=== PATIENT | female | born 1960 | race Caucasian/White ===

== ENCOUNTER 2023-05-02 15:49 | Outpatient (REF) | payer OTHER, SELFPAY ==
--- NOTE | ~2023-05-02 | MR_ITS ---
EXAMINATION: MR BRAIN WITHOUT CONTRAST CLINICAL INFORMATION: Hemiparesis. Patient has a known arteriovenous malformation per Dr. Camara. COMPARISON: None available. TECHNIQUE: Multiplanar, multisequence imaging of the brain was performed without contrast. FINDINGS: There is T2 hyperintense signal abnormality and small curvilinear low signal foci in the parafalcine medial aspect of the high left frontal lobe near the vertex with small areas of susceptibility artifact as well. This 1.8 x 1 x 1.5 cm heterogeneous area of signal abnormality involves the cortical land matter and subcortical white matter deep to the left superior frontal sulcus. The patient is known to have a small arteriovenous malformation in this region. No diffusion abnormalities are identified to suggest an acute or subacute infarct. The ventricles are normal in size. No mass effect or midline shift is seen. Nonspecific minimal scattered white matter signal changes are visible. Mild white matter signal changes are also visible in the central shweta, which may be due to chronic microangiopathy. No extra-axial fluid collections are seen. The cerebellum is normal. The craniovertebral junction, marrow signal, and remaining midline structures are normal. The major intracranial flow voids at the level of the rosebud of Mcdaniel are preserved. The dural venous sinus flow voids are maintained. The mastoid air cells and paranasal sinuses are fairly well aerated. Mild osseous thickening of the left parietal calvarium at the vertex may be due to an osteoma. MR/MR head/brain wo con IMPRESSION: Small arteriovenous malformation in the superomedial left frontal lobe near the vertex with mild surrounding chronic gliosis. Otherwise, no acute intracranial process. Imaging findings discussed with Dr. Camara at 10:40 AM on 05/07/2023.
== END 2023-05-02 15:50 | disposition home or self-care (01) ==
LOC: HO.MRI 15:49
PROVIDERS: Visit Provider Psychiatry & Neurology Neurology
DX: G81.90 Hemiplegia, unspecified affecting unspecified side (principal); G31.09 Other frontotemporal neurocognitive disorder; Q28.2 Arteriovenous malformation of cerebral vessels
CPT/HCPCS: 70551

== ENCOUNTER 2024-09-14 10:29 | Outpatient (AMB) | payer OTHER, SELFPAY ==
--- NOTE | 2024-09-14 10:31 | A.OFFVIS_ITS ---
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 Since then, this weakness has extended to involve her whole right side and also affected her ability to speak. She has consulted many neurologists here and in [place]. Her nurse and twine reeling machine operator were here with number of question asking if done I was suffering from CIDP or Lyme disease. [facility] Medical History (Updated 09/14/24 @ 10:57 by Josselyn Camara MD) Other frontotemporal neurocognitive disorder RLS (restless legs syndrome) Familial spastic paraparesis Hemiparesis AVM (arteriovenous malformation) Insomnia Anxiety disorder Parkinsonism Assessment & Plan Assessment & Plan (1) Hemiparesis: Comment: MRI brain WO at [facility] in Apr 2023: Left frontal AVM with adjascent atrophy Brain MRI WO at [facility] in Jan 2022: Left frontal IMELDA area AVM with no significant encephalomalacia but left frontal cortical areas are atropied Brain MACKENZIE SPECT study in 2017: findings suspicious of PD (reported) CT brain WO at [facility] in 2014: left frontal parasagital multifocal hyperdense lesion, ?AVM MRI brain WWO at [facility] in 2014: left parasagital frontal mixed density lesion, ?AVM MRI C spine at [facility] in 2014 WO: mild spondylosis MRI C spine at [facility] in 2014: WWO: mild spondylosis MRI T spine at [facility] in 2014: mild spondylosis MRI LS spne at [facility] in 2014: L5/S1 mod to sev DJD Code(s): G81.90 - Hemiplegia, unspecified affecting unspecified side Category: Medical Qualifiers: Cerebrovascular disease type: other nontraumatic intracranial hemorrhage Hemiparesis etiology: late effect of cerebrovascular disease Hemiparesis laterality: right dominant side Qualified Code(s): I69.251 - Hemiplegia and hemiparesis following other nontraumatic intracranial hemorrhage affecting right dominant side (2) Anxiety disorder: Code(s): F41.9 - Anxiety disorder, unspecified Category: Medical Qualifiers: Anxiety disorder type: due to known physiological condition Qualified Code(s): F06.4 - Anxiety disorder due to known physiological condition (3) AVM (arteriovenous malformation) brain: Code(s): Q28.2 - Arteriovenous malformation of cerebral vessels Category: Medical (4) Dysarthria: Code(s): R47.1 - Dysarthria and anarthria Category: Medical (5) Other frontotemporal neurocognitive disorder: Code(s): G31.09 - Other frontotemporal neurocognitive disorder; F02.80 - Dementia in other diseases classified elsewhere, unspecified severity, without behavioral disturbance, psychotic disturbance, mood disturbance, and anxiety Category: Medical (6) Spasticity: Comment: Meds tried: cyclobenzaprine, baclofen, tizanidine Code(s): R25.2 - Cramp and spasm Category: Medical (7) RLS (restless legs syndrome): Comment: Meds tried: Pramipaxole Code(s): G25.81 - Restless legs syndrome Category: Medical (8) Degeneration of frontal lobe: Comment: Selective left frontal lobe atrophy, 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 Code(s): G31.9 - Degenerative disease of nervous system, unspecified Category: Medical Plan Impression: 64 yo woman with remote h/o left frontal AVM treated wtih embolization and probably also with radiation in [place] has right hemiparesis and aphasia with MRI brain revealed left frontal lobar atrophy with adjascent signs of AVM repair. Rec: a: Education of her caretakers who had numeours questions b: Sertaline 100mg daily c: Pramipaxole at bedtime for RLS d: She may have flu shot or shingle shot e: Refer to physiatry, Dr. Thapa for management of spasticity and related issues Orders: Referrals Physiatry Referral R25.2 - Cramp and spasm Medications: New sertraline 100 mg PO DAILY 90 tabs 1RF pramipexole 0.5 mg PO QPM 90 tabs 1RF Coding Level of Care Code Est Pt Level 5 (98430) Diagnoses Hemiparesis of right dominant side as late effect of other nontraumatic intracranial hemorrhage I69.251 Cerebrovascular disease type: other nontraumatic intracranial hemorrhage Hemiparesis etiology: late effect of cerebrovascular disease Hemiparesis laterality: right dominant side Anxiety disorder due to known physiological condition F06.4 Anxiety disorder type: due to known physiological condition AVM (arteriovenous malformation) brain Q28.2 Dysarthria R47.1 Other frontotemporal neurocognitive disorder G31.09; F02.80 Spasticity R25.2 RLS (restless legs syndrome) G25.81 Degeneration of frontal lobe G31.9
--- OUTSIDE RECORDS SUMMARY | 2024-09-14 11:32 | XMS_ITS | Clinical Summary ---
Author Organization [facility] Address [address] [address] Phone Care Team Providers Care Occupational Therapist Name Role Phone Jaret De La Cruz MD Primary Care Provider + Allergies No known active allergies Medications trospium (SANCTURA XR) 60 mg Cp24 Take 60 mg by mouth daily. Active sertraline (ZOLOFT) 50 MG tablet Take 50 mg by mouth daily. Active melatonin 10 mg Cap Take 10 mg by mouth nightly at bedtime. Active pramipexole (MIRAPEX) 0.5 MG tablet TAKE 1 TABLET BY MOUTH EVERY DAY 90 tablet 1 02/03/2021 Active Active Problems Problem Noted Date Diagnosed Date Gait difficulty 02/03/2020 Back pain 02/03/2020 Incontinence 12/09/2019 Assessment & Plan (12/09/2019 3:37 PM EDT): Recommend evaluation by urology Neuropathy 05/20/2019 Assessment & Plan (12/09/2019 3:36 PM EDT): She experienced side effects on gabapentin. It was restarted during rehab. 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 Not on mary e 06/22/2022 Are you concerned about learning? Not on file 06/22/2022 No 06/22/2022 No 06/22/2022 Digital Access Answer Date Recorded No 07/21/2022 No 07/21/2022 No 07/21/2022 Reliable internet access at home? Not on file 07/21/2022 Device with a working camera? Not on file Comments Unknown Sex and Gender Information Value Date Recorded Sex Assigned at Female 05/18/2019 2:44 PM EDT Legal Sex Female 2:12 PM EDT Gender Identity Female 05/18/2019 2:44 PM EDT Sexual Orientation Straight 05/18/2019 2: 44 PM EDT Last Filed Vital Signs Vital Sign Reading Time Taken Comments Blood Pressure 125/75 12/17/2018 10:50 AM EDT Pulse 81 12/17/2018 10:50 AM EDT Temperature 36.7 C (98 F) 12/17/2018 10:50 AM EDT Respiratory Rate 16 12/17/2018 10:50 AM EDT Oxygen Saturation 99% 12/17/2018 10:50 AM EDT Inhaled Oxygen Concentration - - Weight 75.3 kg (166 lb) 12/17/2018 10:50 AM EDT pt reported Height 177.8 cm (5' 10 ) 12/17/2018 10:50 AM EDT pt reported Body Mass Index 23.82 12/17/2018 10:50 AM EDT Plan of Treatment Upcoming Encounters Date Type Department Care Team (Late st Contact Info) Description 03/08/2025 4:00 PM EST Office Visit [facility] Neurology Neuromuscular [place] [address] [facility], [address] [place] [address] Jonah Crouch MD [address] [facility] [address] [place] [address] [email or web address] Health Maintenance Due Date Last Done Comments DEPRESSION SCREENING 1973 HEPATITIS C SCREENING 1979 HIV ONE-TIME SCREENING (18-6 5 YEARS) 1979 MAMMOGRAM 2001 COLONOSCOPY 2006 FIT TEST 2006 FOBT 2006 SIGMOIDOSCOPY 2006 VIRTUAL COLONOSCOPY 2006 PNEUMOCOCCAL VACCINES (50+ y ears) (1 of 1 - PCV) 2011 ZOSTER VACCINES (1 of 2) 2011 PAP SMEAR 06/25/2020 06/25/2017 COVID-19 VACCINE (2 - 2023-2 5 season) 2023 05/26/2020 Adult Td,Tdap Booster 07/24/2026 07/24/2016 COLOGUARD 08/13/2026 08/14/2023 COLORECTAL CANCER SCREENING 08/13/2026 LIPID PANEL 07/27/2029 07/27/2024 RSV VACCINE (1 - 1-dose 75+ series) 2036 SMOKING STATUS SCREENING (On ce After 26 Yrs) Completed 02/03/2020 HEPATITIS A VACCINES Aged Out No long er eligible based on patient's age to complete this topic HIB VACCINES Aged Out No longer eligi ble based on patient's age to complete this topic MENINGOCOCCAL VACCINES (ACWY) Aged Out No longer eligible based on patient's age to complete this topic MENINGOCOCCAL VACCINES (B) Aged Out N o longer eligible based on patient's age to complete this topic Medical Devices Not on file Insurance [facility] ONE CARE MEDICARE REPLACEMENT ONE CARE MEDICARE REPLACEMENT CARE MEDICARE [place] [place] [id number] ONE CARE MEDICARE REPLACEMENT CARE MEDICARE REPLACEMENT MEDICARE REPLACEMENT CARE MEDICARE REPLACEMENT [facility] ONE CARE MEDICARE REPLACEMENT [facility] ONE CARE MEDICARE REPLACEMENT Care Teams Occupational Therapist Relationship Specialty Start Date End Date Jaret De La Cruz MD [address] [place] [id number] PCP - General Internal Medicine 08/20/17 Additional Source Comments The information contained in this document represents components of the legal health record. It is not the complete legal health record.[facility]
--- OUTSIDE RECORDS SUMMARY | 2024-09-14 11:32 | XMS_ITS | Clinical Summary ---
Author Organization [facility] Address [address] [place] [address] Phone Care Team Providers Care Bull Gang Supervisor Name Role Phone Caitlin De La Cruz MD Primary Care Provider [phone] Allergies Active Allergy Reactions Criticality Noted Date Comments Iodinated Contrast Media 08/17/2020 Other Reaction(s): Hives/Urticaria Pt states she had hives from iv contrast . Medications acetaminophen (TYLENOL) 500 mg tablet Take 2 tablets (1,000 mg total) by mouth every 6 (six) hours if needed. Active melatonin 10 mg capsule Take 1 capsule (10 mg total) by mouth at bedtime. Active pramipexole (MIRAPEX) 0.5 mg tablet Take 1 tablet (0.5 mg total) by mouth 2 (two) times a day. Active diclofenac (VOLTAREN) 1 % topical gel Apply 4 g topically 2 (two) times a day if needed (knee pain). 90 g 2 5 09/16/19 25 Active sertraline (ZOLOFT) 100 mg tablet TAKE 1 TABLET BY MOUTH EVERY DAY 90 tablet 5 Active tirzepatide, weight loss, (Zepbound) 2.5 mg/0.5 mL injection Inject 0.5 mL (2.5 mg total) under the skin every 7 (seven) days. 2 mL 5 Active tirzepatide (Mounjaro) 2.5 mg/0.5 mL injectionIndica tions:BMI 31.0-31.9,adult Inject 0.5 mL (2.5 mg total) under the skin every 7 (seven) days. 2 mL 08/27/19 Active Problems Problem Noted Date Diagnosed Date Colon cancer screening 08/26/2024 Overview (08/26/2024): Cologuard positive 10/18 05/19 Colonoscopy. Adenoma---3 yrs BMI 31.0-31.9,adult 07/27/2024 Speech impairment 04/20/2024 Abnormal MRI, liver 06/19/2020 Overview (12/13/2023): Hepatic cysts on CT 08/15 Hip fracture (CMS/HCC V24, CMS/HCC V28) 09/09/19 20 Overview (12/13/2023): 08/14. Surgical fixation. Hardware removal 07/17 Corticobasal degeneration (CMS/HCC V24) 07/02/19 19 Overview (12/13/2023): She sees specialist in [place]. + parkinsons Incontinence 04/25/2016 AVM (arteriovenous malformation) 12/06/2015 Overview (12/13/2023): Treated embolization and Laser ablation Depression 12/06/2015 Right sided weakness 12/06/2015 Overview (12/13/2023): Right arm and right lower leg starting approx 2013. Multiple evaluations per pt. Local neurology x3. [facility]. Amador Dudley 03/13. ?parkinsons (drug induced). Dopamine imaging ordered Encounters Date Type Department Care Team Description 08/24/2024 Telephone Adult Medicine - [address] [place] [address] Cynthia Hernandez MA Fitting for DME 07/31/2024 10:30 AM EDT Office Visit Orthopedics - [address] [phone] Domingo Patel PA Primary osteoarthritis of left knee (Primary Dx) 07/28/2024 Telephone Adult Medicine - [address] [place] [address] Ifrah Ulloa PA Referral 07/27/2024 1:00 PM EDT Office Visit Adult Medicine - [address] [place] [address] Ifrah Ulloa PA Difficulty losing weight (Primary Dx); BMI 31.0-31.9,adult; Screening for lipid disorders from Last 3 Months Immunizations Name Administration Dates Next Due Pfizer SARS-CoV-2 COVID-19, mRNA, LNP-S, preservative free 03/20/2021,06/17/2020,05/26/2020 Tdap Tetanus diptheria acell ular pertussis (Boostrix; Adacel) 7yo and older 07/24/2016 Surgical History Surgery Date Site/Laterality Comments SECTION 1989 PROCEDURE: HISTORICAL OTHER SURGICAL HISTORY 1990 PROCEDURE: ---- OTHER ----; COMMENT: avm lASERED OTHER SURGICAL HISTORY 07/2019 Right PROCEDURE: NC OPTX ACTBLR FX INVG ANT&POST 2 COLUMNS FX W/INT TOTAL HIP ARTHROPLASTY Bilateral Medical History Medical History Date Comments Depression DX:Depression Anxiety DX:Anxiety Seizure (CMS/HCC V24, CMS/HCC V28) DX:Seizure (HCC) Neurodegenerative disorder (CMS/HCC V24) AVM (arteriovenous malformation) Family History Medical History Relation Name Comments Depression Brother 1 COPD Father Diabetes Father Hypertension Father Other: heart attack Father Prostate cancer Father Depression Mother Relation Name Status Comments Brother 1 Brother 2 Father Mother Social History Tobacco Use Types Packs/Day Years Used Date Smoking Tobacco: Never Smokeless Tobacco: Never Tobacco Cessation:Counseling Given: Not Answered Alcohol Use Standard Drinks/Week Comments Yes 0 (1 standard drink = 0.6 oz pur e alcohol) Housing Instability Answer Date Recorde d Are you worried that in the next 2 months you may not have stable housing? No 07/20/2024 Food Access & Nutrition Answer Date Rec orded Do you have access to a vari ety of food including fruits and vegetables? Yes 07/20/2024 Access to Healthcare Answer Date Record ed Within the last 3 months, ho w many times did you visit the emergency department for your medical care? 0 07/20/2024 Health Literacy Answer Date Recorded How often do you need to hav e someone help you when you read instructions, pamphlets, or other written material from your doctor or pharmacy? Never 07/20/2024 Caregiver: How often do you need to have someone help you when you read instructions, pamphlets, or other written material from your doctor or pharmacy? Not on file 07/20/2024 Financial Risk Answer Date Recorded How hard is it for you to pa y for the very basics like food, housing, medical care, and air conditioning / heating? Not very hard 07/20/2024 Transportation Answer Date Recorded Has the lack of transportati on kept you from meetings, work, or from getting things needed for daily living? No Has the lack of transportati on kept you from medical appointments or from getting medications? No 07/20/2024 Social Isolation Answer Date Recorded How often do you feel lonely or isolated from th ose around you? Rarely 07/20/2024 Food Risk Answer Date Recorded Within the past 12 months we worried whether our food would run out before we got money to buy more. Never true 07/20/2024 Within the past 12 months th e food we bought just didn't last and we didn't have money to get more. Never true 07/20/2024 Dependent Care Answer Date Recorded Do you need help finding or paying for care for your loved ones. For example, teacher early childhood development or elderly care for an older adult? No 07/20/2024 Education Answer Date Recorded Do you think completing more education or training, like finishing a GED, going to college, or learning a trade, would be helpful for you? No 07/20/2024 Employment and Income Answer Date Recor ded During the last four weeks, have you been actively looking for work? No 07/20/2024 Living Situation Answer Date Recorded What is your living situation? 0 07/20/2024 Interpersonal Safety Answer Date Record ed Physical Abuse 04/29/2024 Verbal Abuse 04/29/2024 Comments No Sex and Gender Information Value Date Recorded Sex Assigned at Female 04/29/2024 9:18 AM EST Legal Sex Female 12:09 PM EST Gender Identity Female 04/29/2024 9:18 AM EST Sexual Orientation Straight 04/29/2024 9: 18 AM EST Obstetrics History Last Filed Vital Signs Vital Sign Reading Time Taken Comments Blood Pressure 107/78 07/31/2024 10:35 AM EDT Pulse 74 07/31/2024 10:35 AM EDT Temperature 36.7 C (98 F) 07/27/2024 12:48 PM EDT Respiratory Rate 14 07/31/2024 10:35 AM EDT Oxygen Saturation 100% 04/29/2024 11:14 AM EST Inhaled Oxygen Concentration - - Weight 88.5 kg (195 lb) 07/31/2024 10:35 AM EDT Height 177.8 cm (5' 10 ) 07/27/2024 12:48 PM EDT Body Mass Index 27.98 07/27/2024 12:48 PM EDT Plan of Treatment Upcoming Encounters Date Type Department Care Team (Late st Contact Info) Description 11/02/2024 11:30 AM EDT Office Visit Orthopedics - [address] [place] [address] Domingo Patel PA [address] [place] [address] Health Maintenance Due Date Last Done Comments Breast Cancer Screening 1960 Pneumococcal Vaccine: 50+ Years (1 of 1 - PCV) 2011 Zoster Vaccines (1 of 2) 2011 Cervical Cancer Screening: Pap Smear 06/25/2020 06/25/2017, 06/25/2017, 06/25/2017 HIV Screening 01/29/2022 Medicare Annual Wellness Visit 01/29/2022 COVID-19 Vaccine (4 - 2023-2 5 season) 2023 03/20/2021, 06/17/2020, 05/26/2020 Influenza Vaccine (#1) 2024 Social Influencers of Health Screening 07/20/2025 07/20/2024 DTaP,Tdap,and Td Vaccines (2 - Td or Tdap) 07/24/2026 07/24/2016 Colorectal Cancer Screening: Colonoscopy 04/30/2027 04/29/2024 Cholesterol Screening (Lipid Panel) 07/27/2029 07/27/2024, 11/28/2023, 11/28/2023 Hepatitis C Screening Completed 03/27/2017 RSV Immunization Adult Patients Completed 11/29/2022 Colorectal Cancer Screening: FIT-DNA (Cologuard) Discontinued 08/14/2023, 08/14/2023 Depression Screening Completed 07/20/2024, 11/28/2023 HIB Vaccines Aged Out No longer eligi ble based on patient's age to complete this topic HPV Vaccines Aged Out No longer eligi ble based on patient's age to complete this topic Hepatitis A Vaccines Aged Out No long er eligible based on patient's age to complete this topic Hepatitis B Vaccines Aged Out No long er eligible based on patient's age to complete this topic IPV Vaccines Aged Out No longer eligi ble based on patient's age to complete this topic MMR Vaccines Aged Out No longer eligi ble based on patient's age to complete this topic Meningococcal ACWY Vaccine Aged Out N o longer eligible based on patient's age to complete this topic Meningococcal B Vaccine Aged Out No l onger eligible based on patient's age to complete this topic RSV Immunization Patients Under 20 months Aged Out No longer eligible based on patient's age to complete this topic Varicella Vaccines Aged Out No longer eligible based on patient's age to complete this topic Procedures Procedure Name Priority Date/Time Associated Diagnosis Comments NC ARTHROCENTESIS/ASPIRA TION/INJECTION MAJOR JOINT/BURSA W/O U/S GUIDANCE Routine 07/31/2024 10:30 AM EDT Primary osteoarthritis of left knee COMPREHENSIVE METABOLIC PANEL Routine 07/27/2024 1:27 PM EDT Screening for lipid disorders LIPID PANEL WITH REFLEX TO DIRECT LDL Routine 07/27/2024 1:27 PM EDT Screening for lipid disorders COLONOSCOPY Routine 04/29/2024 10:53 AM EST Positive colorectal cancer screening using Cologuard test DEPRESSION SCREENING Routine 11/28/2023 PAP SMEAR Routine 06/25/2017 HEPATITIS C SCREENING Routine 03/27/2017 from Last 3 Months or Most Recently Relevant to Health Maintenance Results * NC ARTHROCENTESIS/ASPIRATION/INJECTION MAJOR JOINT/BURSA W/O U/S GUIDANCE (07/31/2024 10:30 AM EDT) Domingo Murillo PA - 07/31/2024 10:30 AM EDT SHAUNA Sy 07/31/2024 10:54 AM L Inj/Asp: L knee Indications: pain Details: 22 G needle, anterolateral approach Medications: 4 mL lidocaine 1 %; 80 mg methylPREDNISolone acetate 80 mg/mL Outcome: tolerated well, no immediate complications Informed Consent: Site: Knee Laterality: Left Relevant images/test results available and reviewed: yes Health status cleared: Yes Procedure/treatment, purpose, treatment alternatives, risks/potential complications and benefits explained: yes Risk/complications/benefits details: Risks include but are not limited to: The treatment may not accomplish the desired results. Additionally bleeding, infection, damage to tendon, nerve, cartilage, muscle; thinning or lightening of the skin in the area of injection; flushing or redness of the face, elevated blood pressure or blood sugar, allergic reaction, rash, increased pain Benefits include relief of inflammation and pain Patient questions answered: yes Patient agrees, verbalizes understanding, and wants to proceed: yes Consent given by: Patient Informed consent discussion completed by Physician/ALICIA with patient: Verbal Pre-procedure timeout performed: yes us Domingo VILLATORO IN CLINIC/BEDSIDE ORDERABLES Fin al Result * (ABNORMAL) Lipid panel with reflex to direct LDL (07/27/2024 1:27 PM EDT) Cholesterol 253(H) 0 - 200 mg/dL LAB CHEMISTRY METHOD 07/27/2024 5:01 PM EDT [facility] Triglycerides 192(H) 0 - 150 mg/dL LAB CHEMISTRY METHOD 07/27/2024 5:01 PM EDT [facility] HDL 65 >=40 mg/dL LAB CHEMISTRY METHOD 07/27/2024 5:01 PM EDT [facility] LDL Calculated 150(H) 0 - 100 mg/dL LAB CHEMISTRY METHOD 07/27/2024 5:01 PM EDT [facility] VLDL Cholesterol Mark 38.4 mg/dL LAB CHEMISTRY METHOD 07/27/2024 5:01 PM T [facility] Non HDL Chol. (LDL+VLDL) 188(H) <145 mg/dL LAB CHEMISTRY METHOD 07/27/2024 5:01 PM [facility] Chol/HDL Ratio 3.9 0.0 - 4.4 LAB CHEMISTRY METHOD 07/27/2024 5:01 PM [facility] Blood Venous blood specimen / Unknown Venipuncture / Unknown 07/27/2024 1:27 PM EDT 07/27/2024 1:27 PM EDT us Ifrah VILLATORO LAB BLOOD ORDERABLES Final Resul t [facility] [address] [place] [address], [place] [phone] * (ABNORMAL) Comprehensive metabolic panel (07/27/2024 1:27 PM EDT) Sodium 137 133 - 145 mmol/L LAB CHEMISTRY METHOD 07/27/2024 5:04 PM [facility] Potassium 4.1 3.5 - 5.5 mmol/L LAB CHEMISTRY METHOD 07/27/2024 5:04 PM [facility] Chloride 103 96 - 110 mmol/L LAB CHEMISTRY METHOD 07/27/2024 5:04 PM [facility] CO2 27 21 - 32 mmol/L LAB CHEMISTRY METHOD 07/27/2024 5:04 PM [facility] Anion Gap 7 3 - 11 LAB CHEMISTRY METHOD 07/27/2024 5:04 PM [facility] Glucose 122(H) 70 - 100 mg/dL LAB CHEMISTRY METHOD 07/27/2024 5:04 PM [facility] BUN 14 5 - 25 mg/dL LAB CHEMISTRY METHOD 07/27/2024 5:04 PM [facility] Creatinine 0.76 0.50 - 1.10 mg/dL LAB CHEMISTRY METHOD 07/27/2024 5:04 PM T [facility] eGFR 88 >=60 mL/min/1. 73m2 LAB CHEMISTRY METHOD 07/27/2024 5:04 PM [facility] Comment:Calculation based on the Chronic Kidney Disease Epidemiology Collaboration (CKD-EPI) equation refit without adjustment for race. BUN/Creatinine Ratio 18.4 LAB CHEMISTRY METHOD 07/27/2024 5:04 PM T [facility] Calcium 9.7 8.5 - 10.5 mg/dL LAB CHEMISTRY METHOD 07/27/2024 5:04 PM [facility] AST (SGOT) 15 10 - 42 unit/L LAB CHEMISTRY METHOD 07/27/2024 5:04 PM [facility] ALT (SGPT) 26 10 - 60 unit/L LAB CHEMISTRY METHOD 07/27/2024 5:04 PM [facility] Alkaline Phosphatase 100 42 - 121 unit/L LAB CHEMISTRY METHOD 07/27/2024 5:04 PM [facility] Total Protein 7.6 6.0 - 8.0 g/dL LAB CHEMISTRY METHOD 07/27/2024 5:04 PM [facility] Albumin 3.7 3.2 - 5.0 g/dL LAB CHEMISTRY METHOD 07/27/2024 5:04 PM [facility] Total Bilirubin 0.8 0.0 - 1.4 mg/dL LAB CHEMISTRY METHOD 07/27/2024 5:04 PM [facility] Blood Venous blood specimen / Unknown Venipuncture / Unknown 07/27/2024 1:27 PM EDT 07/27/2024 1:27 PM EDT us Ifrah VILLATORO LAB BLOOD ORDERABLES Final Resul t [facility] [address] [place] [address], * COLONOSCOPY Anesthesia - MAC; [facility] ENDOSCOPY (04/29/2024 10:53 AM EST) Anatomical Region Laterality Modality Endoscopy 04/29/2024 10:1 2 AM EST Impressions 04/29/2024 10:52 AM EST - Two 7 to 10 mm polyps in the ascending colon and in the cecum, removed with a cold snare. Resected and retrieved. - The examination was otherwise normal on direct and retroflexion views. Recommendation: - - Discharge patient to home. - High fiber diet. - Continue present medications. - Await pathology results. - Repeat colonoscopy for surveillance based on pathology results. Narrative 04/29/2024 10:52 AM EST [facility] GI Patient Name: Stefan Horowitz Procedure Date: 04/29/2024 10:12 AM Date of : 1960 Age: 64 Gender: Female Note Status: Finalized Attending MD: Mathew Flores DO, [id number] Procedure Date No Time: 04/29/2024 Procedure: Colonoscopy Indications: Positive Cologuard test Providers: Mathew Flores DO Referring MD: Jaret De La Cruz MD Medicines: Monitored Anesthesia Care Complications: No immediate complications. Estimated blood loss: Minimal. Estimated Blood Loss: Estimated blood loss was minimal. Procedure: Pre-Anesthesia Assessment: - - Prior to the procedure, a History and Physical was performed, and patient medications and allergies were reviewed. The patient is competent. The risks and benefits of the procedure and the sedation options and risks were discussed with the patient. All questions were answered and informed consent was obtained. Patient identification and proposed procedure were verified by the physician, the nurse, the anesthesiologist, the allergy and immunology specialist and the vehicle monitor technician in the pre-procedure area in the endoscopy suite. Mental Status Examination: alert and oriented. Airway Examination: normal oropharyngeal airway and neck mobility. Respiratory Examination: clear to auscultation. CV Examination: normal. Prophylactic Antibiotics: The patient does not require prophylactic antibiotics. Prior Anticoagulants: The patient has taken no anticoagulant or antiplatelet agents. ASA Grade Assessment: II - A patient with severe systemic disease. After reviewing the risks and benefits, the patient was deemed in satisfactory condition to undergo the procedure. The anesthesia plan was to use monitored anesthesia care (MAC). Immediately prior to administration of medications, the patient was re-assessed for adequacy to receive sedatives. The heart rate, respiratory rate, oxygen saturations, blood pressure, adequacy of pulmonary ventilation, and response to care were monitored throughout the procedure. The physical status of the patient was re-assessed after the procedure. After I obtained informed consent, the scope was passed under direct vision. Throughout the procedure, the patient's blood pressure, pulse, and oxygen saturations were monitored continuously.The Colonoscope was introduced through the anus and advanced to the cecum, identified by appendiceal orifice and ileocecal valve. The colonoscopy was performed without difficulty. The patient tolerated the procedure well. The quality of the bowel preparation was good. Findings: The perianal and digital rectal examinations were normal. Two sessile polyps were found in the ascending colon and cecum. The polyps were 7 to 10 mm in size. These polyps were removed with a cold snare. Resection and retrieval were complete. Verification of patient identification for the specimen was done. Estimated blood loss was minimal. The exam was otherwise without abnormality on direct and retroflexion views. Procedure Code(s): --- Professional --- 25763, Colonoscopy, flexible; with removal of tumor(s), polyp(s), or other lesion(s) by snare technique Diagnosis Code(s): --- Professional --- D12.2, Benign neoplasm of ascending colon D12.0, Benign neoplasm of cecum R19.5, Other fecal abnormalities CPT copyright 2020 [employer]. All rights reserved. The codes documented in this report are preliminary and upon neuropsychology division chief review may be revised to meet current compliance requirements. MATHEW Flores DO 04/29/2024 10:52:12 AM This report has been signed electronically.Mathew Flores DO Number of Addenda: 0 Note Initiated On: 04/29/2024 10:12 AM Scope Withdrawal Time: 0 hours 7 minutes 39 seconds Scope In: 10:34:51 AM Scope Out: 10:49:34 AM Endoscopy Department at [facility] - [address] [place] [id number] Procedure Note Mathew Flores DO - 04/29/2024 [facility] GI Patient Name: Stefan Horowitz Procedure Date: 04/29/2024 10:12 AM Date of : 1960 Age: 64 Gender: Female Note Status: Finalized Attending MD: Mathew Flores DO, [id number] Procedure Date No Time: 04/29/2024 Procedure: Colonoscopy Indications: Positive Cologuard test Providers: Mathew Flores DO Referring MD: Jaret De La Cruz MD Medicines: Monitored Anesthesia Care Complications: No immediate complications. Estimated blood loss: Minimal. Estimated Blood Loss: Estimated blood loss was minimal. Procedure: Pre-Anesthesia Assessment: - - Prior to the procedure, a History and Physicalwas performed, and patient medications and allergieswere reviewed. The patient is competent. The risks and benefits of the procedure and the sedation optionsand risks were discussed with the patient. Allquestions were answered and informed consent was obtained. Patient identification and proposed procedure were verified by the physician, the nurse, the anesthesiologist, the allergy and immunology specialist and thetechnician in the pre-procedure area in the endoscopy suite. Mental Status Examination: alert and oriented.Airway Examination: normal oropharyngeal airway and neck mobility. Respiratory Examination: clear to auscultation. CV Examination: normal. Prophylactic Antibiotics: The patient does not requireprophylactic antibiotics. Prior Anticoagulants: The patient has taken no anticoagulant or antiplatelet agents. ASA Grade Assessment: II - A patient with severesystemic disease. After reviewing the risks and benefits,the patient was deemed in satisfactory condition to undergo the procedure. The anesthesia plan was touse monitored anesthesia care (MAC). Immediately priorto administration of medications, the patient was re-assessed for adequacy to receive sedatives. The heart rate, respiratory rate, oxygen saturations, blood pressure, adequacy of pulmonary ventilation,and response to care were monitored throughout the procedure. The physical status of the patient was re-assessed after the procedure. After I obtained informed consent, the scope was passed under direct vision. Throughout theprocedure, the patient's blood pressure, pulse, and oxygen saturations were monitored continuously.The Colonoscope was introduced through the anus and advanced to the cecum, identified by appendiceal orifice and ileocecal valve. The colonoscopy was performed without difficulty. The patient tolerated the procedure well. The quality of the bowel preparation was good. Findings: The perianal and digital rectal examinations were normal. Two sessile polyps were found in the ascendingcolon and cecum. The polyps were 7 to 10 mm in size.These polyps were removed with a cold snare. Resectionand retrieval were complete. Verification of patient identification for the specimen was done. Estimated blood loss was minimal. The exam was otherwise without abnormality ondirect and retroflexion views. Procedure Code(s): --- Professional --- 40807, Colonoscopy, flexible; with removal of tumor(s), polyp(s), or other lesion(s) by snare technique Diagnosis Code(s): --- Professional --- D12.2, Benign neoplasm of ascending colon D12.0, Benign neoplasm of cecum R19.5, Other fecal abnormalities CPT copyright 2020 [employer]. All rights reserved. The codes documented in this report are preliminary and upon neuropsychology division chief reviewmay be revised to meet current compliance requirements. MATHEW Flores DO 04/29/2024 10:52:12 AM This report has been signed electronically.Mathew Flores DO Number of Addenda: 0 Note Initiated On: 04/29/2024 10:12 AM Scope Withdrawal Time: 0 hours 7 minutes 39 seconds Scope In: 10:34:51 AM Scope Out: 10:49:34 AM Endoscopy Department at [facility] - [address] [place] [id number] IMPRESSION: - Two 7 to 10 mm polyps in the ascending colon and in the cecum, removed with a cold snare. Resected and retrieved. - The examination was otherwise normal on directand retroflexion views. Recommendation: - - Discharge patient to home. - High fiber diet. - Continue present medications. - Await pathology results. - Repeat colonoscopy for surveillance based on pathology results. Mathew Flores DO GI~PROCEDURE ORDERABLES Final Re sult * Depression Screening (11/28/2023) Depression Screening Abstracted us Historical Provider HEALTH MAINTENANCE Final Result * Pap smear (06/25/2017) 06/25/2017 Narrative HISTORICAL TESTING LAB RESULTING AGENCY - 06/28/2017 12:44 PM EDT [id number] THINPREP PAP, IMAGED: NEGATIVE FOR SQUAMOUS INTRAEPITHELIAL LESION AND MALIGNANCY . ATROPHY WITH INFLAMMATION IS PRESENT. RESULT OF APTIMA HIGH RISK HPV ASSAY: NEGATIVE (SEROTYPES 16,18,31,33,35,39,45,51,52,56,58,59,66,68) MACKENZIE ARNOLD(ASCP) (CASE ELECTRONICALLY SIGNED 06 28 2017) ADEQUACY: SATISFACTORY. SOURCE: THINPREP PAP HPV ANY DX: REFLEX 16 AND 18, CERVICAL, IMAGED: CLINICAL INFORMATION: HPV ANY DIAGNOSIS. Z12.4, Z01.419, POST [facility] Stephie Shook DO LAB CYTOLOGY ORDERABLES Final Result HISTORICAL TESTING LAB RESULTING AGENCY * Hepatitis C Screening (03/27/2017) Hepatitis C Screening Abstracted us Historical Provider HEALTH MAINTENANCE Final Result from Last 3 Months or Most Recently Relevant to Health Maintenance Insurance [address] [place] [id number] [facility] MEDICARE Member Subscriber Plan / Payer (Ef fective 2019-Present) Name:STEFAN HOROWITZ Relation to Subscriber:Self Name:Stefan Horowitz Payer ID:[id number] Group ID:[id number] Type:Not on file Address: [place] [address] [place] [phone] Care Teams Bull Gang Supervisor Relationship Specialty Start Date End Date Caitlin De La Cruz MD [address] [place] [address] [place] [address] PCP - General Internal Medicine 10/12/15
== END 2024-09-14 11:11 | disposition home or self-care (01) ==
LOC: HO.HSM 10:30
PROVIDERS: Visit Provider Psychiatry & Neurology Neurology
DX: I69.251 Hemiplegia and hemiparesis following other nontraumatic intracranial hemorrhage affecting right dominant side (principal); F06.4 Anxiety disorder due to known physiological condition; Q28.2 Arteriovenous malformation of cerebral vessels; R47.1 Dysarthria and anarthria; G31.09 Other frontotemporal neurocognitive disorder; F02.80 Dementia in other diseases classified elsewhere, unspecified severity, without behavioral disturbance, psychotic disturbance, mood disturbance, and anxiety; R25.2 Cramp and spasm; G25.81 Restless legs syndrome; G31.9 Degenerative disease of nervous system, unspecified
CPT/HCPCS: 99214

== ENCOUNTER → 2024-09-14 10:29 | Outpatient (BNVA) | payer OTHER, SELFPAY | PROVIDERS: Visit Provider Psychiatry & Neurology Neurology | DX: I69.251 Hemiplegia and hemiparesis following other nontraumatic intracranial hemorrhage affecting right dominant side (principal); Q28.2 Arteriovenous malformation of cerebral vessels; R47.1 Dysarthria and anarthria; F02.80 Dementia in other diseases classified elsewhere, unspecified severity, without behavioral disturbance, psychotic disturbance, mood disturbance, and anxiety; G31.09 Other frontotemporal neurocognitive disorder; F41.9 Anxiety disorder, unspecified; G25.81 Restless legs syndrome; G31.9 Degenerative disease of nervous system, unspecified | CPT/HCPCS: 99212 ==